=== PATIENT | female | born 1985 | race Asian ===

== ENCOUNTER 2017-09-05 22:07 | Emergency (ER) | payer SELFPAY ==
--- NOTE | 2017-09-05 22:11 | EDPHY ---
H & P Time Seen by Provider: 09/05/17 22:11 HPI/ROS: HPI CHIEF COMPLAINT: Trouble with thoughts, trouble with vision, now resolved HISTORY OF PRESENT ILLNESS: Patient very pleasant 32-year-old female she is currently 15 weeks , she presents emergency room as approximately an hour ago she was speaking to her nephew in [place] and was discussing the day, she had a hard time remembering the word ice cream in [place] which she states is very unusual for her she had a hard time remembering it was unable to convey the word over the phone. She states his very unusual. She then states that she hung up the phone and was talking to her who was asking her stroke questions and he was standing in front of her and states that she had a hard time seeing the left side of him. She states she is unsure if this was out of 1 eye or both eyes but states that she felt like she could not see his left hand when she was holding both of his hands up in front of her. The symptoms have since resolved. She does complain of a little bit of a left-sided posterior headache. Denies neck pain chest pain or shortness of breath, denies focal weakness, denies focal numbness or tingling. She now states she feels fine. She states the symptoms lasted approximately 20- 30 minutes. This happened an hour ago were little bit over an hour ago. Upon arrival to the emergency room had NIH stroke scale is 0. Her symptoms have completely resolved. She has no complaints. Past Medical History: Denies significant medical history Past Surgical History: He denies significant surgical history Social History: Denies daily use drugs alcohol tobacco. Family History: Noncontributory ROS REVIEW OF SYSTEMS: A comprehensive 10 point review of systems is otherwise negative aside from elements mentioned in the history of present illness. Exam Constitutional appears well nontoxic no acute distress triage nursing summary reviewed, vital signs reviewed, awake/alert. Eyes normal conjunctivae and sclera, EOMI, PERRLA. HENT normal inspection, atraumatic, moist mucus membranes, no epistaxis, neck supple/ no meningismus, no raccoon eyes. Respiratory clear to auscultation bilaterally, normal breath sounds, no respiratory distress, no wheezing. Cardiovascular rate normal, regular rhythm, no murmur, no edema, distal pulses normal. Gastrointestinal gravid uterus on exam, soft, non-tender, no rebound, no guarding, normal bowel sounds, no distension, no pulsatile mass. Genitourinary no CVA tenderness. Musculoskeletal no midline vertebral tenderness, full range of motion, no calf swelling, no tenderness of extremities, no meningismus, good pulses, neurovascularly intact. Skin pink, warm, & dry, no rash, skin atraumatic. Neurologic no focal neuro deficit on exam awake, alert and oriented x 3, AAOx3 , moves all 4 extremities equally, motor intact, sensory intact, CN II-XII intact, normal cerebellar, normal vision, normal speech. Psychiatric normal mood/affect. Heme/Lymph/Immune no lymphadenopathy. Differential Diagnosis: Includes but is not limited to in a particular order TIA, CVA, ocular migraine, cluster headache, sinus venous thrombosis, intracranial bleed Medical Decision Making: Plan for this patient check basic blood work, IV hydration, check urinalysis, MRI brain without contrast. Additionally will consult [facility] discuss the case. Re-evaluation: [id number]: I spoke with [facility] Dr. Rios, discussed case in detail. He does recommend MRI venogram an MRI brain. If these are normal patient can be discharged home. MRI brain without contrast and MR venogram called to me by Dr. Kitty Grady shows no evidence of sinus venous thrombosis nor does show any evidence of bleed or stroke. Unremarkable MRI. Please see full dictation for details of the report. 1238: Re-evaluation at this time patient resting comfortably no acute distress and has no complaints denies headache, denies focal numbness or tingling neurological exam is unremarkable. No trouble with speech no trouble with her vision. Her MRIs have been reviewed unremarkable blood work is appropriate. Urinalysis shows no signs of infection. Return precautions discussed with the patient and significant other at bedside. They understand return emergency room there is any worsening symptoms questions or concerns. Source: Patient Constitutional: Initial Vital Signs Temperature (C) 36.8 C 09/05/17 22:11 Heart Rate 76 09/05/17 22:11 Respiratory Rate 16 09/05/17 22:11 Blood Pressure 105/70 09/05/17 22:11 O2 Sat (%) 96 09/05/17 22:11 O2 Delivery Mode Room Air Allergies/Adverse Reactions: No Known Allergies Allergy (Unverified 09/05/17 22:18) Medical Decision Making - Data Points Laboratory Results: Laboratory Results 09/05/17 22:17 09/05/17 22:17 09/06/17 09/05/17 09/05/17 00:15 22:17 22:17 WBC 9.74 10^3/uL H 10^3/uL (3.80-9.50) RBC 4.34 10^6/uL 10^6/uL (4.18-5.33) Hgb 13.2 g/dL g/dL (12.6-16.3) Hct 38.4 % % (38.0-47.0) MCV 88.5 fL fL (81.5-99.8) MCH 30.4 pg pg (27.9-34.1) MCHC 34.4 g/dL g/dL (32.4-36.7) RDW 13.3 % % (11.5-15.2) Plt Count 177 10^3/uL 10^3/uL (150-400) MPV 10.3 fL fL (8.7-11.7) Neut % (Auto) 69.6 % % (39.3-74.2) Lymph % (Auto) 23.0 % % (15.0-45.0) [place] % (Auto) 6.0 % % (4.5-13.0) Eos % (Auto) 0.8 % % (0.6-7.6) Baso % (Auto) 0.2 % L % (0.3-1.7) Nucleat RBC Rel Count 0.0 % % (0.0-0.2) Absolute Neuts (auto) 6.78 10^3/uL H 10^3/uL (1.70-6.50) Absolute Lymphs (auto) 2.24 10^3/uL 10^3/uL (1.00-3.00) Absolute Monos (auto) 0.58 10^3/uL 10^3/uL (0.30-0.80) Absolute Eos (auto) 0.08 10^3/uL 10^3/uL (0.03-0.40) Absolute Basos (auto) 0.02 10^3/uL 10^3/uL (0.02-0.10) Absolute Nucleated RBC 0.00 10^3/uL 10^3/uL (0-0.01) Immature Gran % 0.4 % % (0.0-1.1) Immature Gran # 0.04 10^3/uL 10^3/uL (0.00-0.10) Sodium 134 mEq/L L mEq/L (135-145) Potassium 4.0 mEq/L mEq/L (3.3-5.0) Chloride 103 mEq/L mEq/L (97-110) Carbon Dioxide 23 mEq/l mEq/l (22-31) Anion Gap 8 mEq/L mEq/L (8-16) BUN 7 mg/dL mg/dL (7-23) Creatinine 0.6 mg/dL mg/dL (0.6-1.0) Estimated GFR > 60 Glucose 87 mg/dL mg/dL (70-100) Calcium 8.8 mg/dL mg/dL (8.5-10.4) Urine Color YELLOW Urine Appearance CLEAR Urine pH 6.0 (5.0-7.5) Ur Specific [place] 1.008 (1.002-1.030) Urine Protein NEGATIVE (NEGATIVE) Urine Ketones 1+ H (NEGATIVE) Urine Blood 1+ H (NEGATIVE) Urine Nitrate NEGATIVE (NEGATIVE) Urine Bilirubin NEGATIVE (NEGATIVE) Urine Urobilinogen NEGATIVE EU EU (0.2-1.0) Ur Leukocyte Esterase NEGATIVE (NEGATIVE) Urine RBC 1-3 /hpf /hpf (0-3) Urine WBC 1-3 /hpf /hpf (0-3) Ur Epithelial Cells TRACE /lpf /lpf (NONE-1+) Urine Mucus TRACE /lpf /lpf (NONE-1+) Urine Glucose NEGATIVE (NEGATIVE) Medications Given: Discontinued Medications Sodium Chloride (Ns) 1,000 mls @ 0 mls/hr IV EDNOW ONE; Wide Open PRN Reason: Protocol Stop: 09/05/17 22:21 Last Admin: 09/05/17 22:26 Dose: 1,000 mls Departure - Departure Disposition: Home, Routine, Self-Care Clinical Impression: Headache Qualifiers: Headache type: unspecified Headache chronicity pattern: acute headache Intractability: not intractable Qualified Code(s): R51 - Headache Condition: Good Instructions: Acute Headache (ED) Additional Instructions: 1. Stay well-hydrated and rest. 2. Return emergency room if you have worsening symptoms questions or concerns. Referrals: NONE *PRIMARY CARE P,. [Primary Care Provider] - As per Instructions
[2017-09-05] MEDS ORDERED: NS 1,000 ML IV ONE (22:20)
[2017-09-05 22:26] LABS: PLATELET COUNT 177 10^3/uL (150-400)
[2017-09-06 00:16] VITALS: BP 105/73
== END 2017-09-06 00:56 | disposition home or self-care (01) ==
DX: O99.89 Other specified diseases and conditions complicating pregnancy, childbirth and the puerperium (principal); R51 Headache; E86.9 Volume depletion, unspecified; Z3A.15 15 weeks gestation of pregnancy